=== PATIENT | female | born 1935 | race Caucasian/White ===

== ENCOUNTER → 2021-03-07 | Outpatient (CLI) | payer MEDICARE, OTHER ==
[~2021-03-07] MED LIST: LASIX40 MG PO; VIBRAMYCIN100 MG PO
[2021-03-07 19:38] LABS: HEMOGLOBIN 11.1 gm/dl (12.3-15.3); RED BLOOD COUNT 4.46 M/UL (4.00-5.10); WHITE BLOOD COUNT 6.3 K/UL (4.5-11.0)
[2021-03-07 20:01] LABS: BUN/CREATININE RATIO 21 (0-10)
== END ==
LOC: LAB 18:31
PROVIDERS: Family Medicine
DX: D64.9 Anemia, unspecified (principal); E78.5 Hyperlipidemia, unspecified; R53.83 Other fatigue; I10 Essential (primary) hypertension; E03.9 Hypothyroidism, unspecified; E55.9 Vitamin D deficiency, unspecified; I48.91 Unspecified atrial fibrillation; D69.9 Hemorrhagic condition, unspecified
CPT/HCPCS: 80053; 80061; 82607; 82728; 82746; 83540; 83550; 84439; 84443; 85025; 85379; 85610; 85730

== ENCOUNTER → 2021-03-08 | Outpatient (CLI) | payer MEDICARE, OTHER | LOC: CT 12:23 | DX: R06.02 Shortness of breath (principal); R79.81 Abnormal blood-gas level; R79.89 Other specified abnormal findings of blood chemistry; I51.7 Cardiomegaly; K74.60 Unspecified cirrhosis of liver | CPT/HCPCS: 71275; Q9967 ==

== ENCOUNTER 2021-06-22 21:58 | Emergency (ER) | payer MEDICARE, OTHER ==
[2021-06-23 02:08] LABS: HEMOGLOBIN 11.4 gm/dl (12.3-15.3); RED BLOOD COUNT 4.42 M/UL (4.00-5.10)
[2021-06-23] MEDS ORDERED: LASIX40 MG PO (05:07)
== END 2021-06-23 03:30 | disposition home or self-care (01) ==
LOC: ER1 21:58
PROVIDERS: Physician Assistant Medical
DX: I11.0 Hypertensive heart disease with heart failure (principal); I50.9 Heart failure, unspecified; I48.91 Unspecified atrial fibrillation; E03.9 Hypothyroidism, unspecified; Z20.822 Contact with and (suspected) exposure to COVID-19
CPT/HCPCS: 71045; 80162; 82550; 82553; 83874; 83880; 84439; 84443; 84484; 85025; 85610; 93005; 96374; 99285; J1940; U0002